=== PATIENT | male | born 1990 | race Two or more races ===

== ENCOUNTER 2018-10-18 14:23 | Emergency (ER) | payer MEDICAID ==
[~2018-10-18] VITALS: Ht 167.6 cm; Wt 68.2 kg
[2018-10-18 14:30] VITALS: BP 144/90
[2018-10-18] MEDS ORDERED: LIDOCAINE/PF 1% 5 ML VIAL INJ ONE (16:45)
[2018-10-18] MEDS ORDERED: PERTUSS(ACELL),DIPH,TET VAC/PF 0.5 ML VIAL IM ONE (16:45)
[2018-10-18] MEDS ORDERED: BACITRACIN 0.9 GM PACKET OINTMENT TP ONE (16:45)
== END 2018-10-18 18:31 | disposition home or self-care (01) ==
LOC: EMS 14:43
DX: S61.012A Laceration without foreign body of left thumb without damage to nail, initial encounter (principal); W25.XXXA Contact with sharp glass, initial encounter; Y93.89 Activity, other specified; Y92.89 Other specified places as the place of occurrence of the external cause; Y99.8 Other external cause status
CPT/HCPCS: 12001; 73130; 90471; 90715; 99283; J3490